=== PATIENT | male | born 1955 | race Caucasian/White ===

== ENCOUNTER → 2023-03-10 15:14 | Outpatient (BNVA) | payer MEDICARE, SELFPAY | PROVIDERS: PCP Internal Medicine; Visit Provider Physician Assistant | DX: M54.50 Low back pain, unspecified (principal) | CPT/HCPCS: 99212 ==

== ENCOUNTER 2023-03-31 15:45 | Outpatient (REF) | payer MEDICARE, SELFPAY ==
--- NOTE | ~2023-03-31 | MR_ITS ---
EXAMINATION: MR LUMBAR SPINE WITHOUT CONTRAST CLINICAL INFORMATION: Radiculopathy COMPARISON: None TECHNIQUE: MRI of the lumbar spine was obtained using routine sequences without contrast. FINDINGS: Motion degraded examination Normal anatomic alignment. Heterogeneous marrow signal without suspicious focal osseous lesion in the lumbar spine. There is some rectangular T1 hypointense signal within the right iliac bone which may be postsurgical or reflect benign sclerosis. There is some scattered focal fat or small hemangiomas throughout the vertebral bodies. L5 superior endplate Schmorl's node. Mixed type I and type II anomaly right-sided endplate marrow signal changes at L3-L4. The vertebral body heights are maintained. Multilevel disc desiccation and height loss. The conus medullaris terminates at the level of L1. The distal spinal cord is normal in appearance. The cauda equina nerve roots appear normal. No significant abnormalities of the paraspinal musculature. There is some subcutaneous scarring in the right posterior subcutaneous fat. Limited evaluation of the intra-abdominal structures without significant abnormalities. The abdominal aorta is of normal contour and caliber. SPINAL LEVELS: T12-L1: No significant spinal canal or neural foraminal narrowing L1-L2: No significant spinal canal or neuroforaminal narrowing. L2-L3: No significant spinal canal or neuroforaminal narrowing. Shallow left eccentric disc bulge. L3-L4: Disc osteophyte complex, mild to moderate facet arthropathy, ligamentum flavum thickening. No significant central spinal canal stenosis. Bilateral subarticular zone narrowing. Mild left and moderate right neural foraminal narrowing L4-L5: No significant spinal canal or neuroforaminal narrowing. Mild to moderate facet arthropathy. Shallow disc bulge. Bilateral subarticular zone narrowing. L5-S1: No significant spinal canal or neuroforaminal narrowing. MR/MR lumbar spine wo con IMPRESSION: Motion degraded examination. Multilevel lumbar spondylosis as described above without significant central spinal canal narrowing. There is bilateral subarticular zone narrowing at L3-L4 and L4-L5 and mild left and moderate right neural foraminal narrowing at L3-L4.
== END 2023-03-31 15:46 | disposition home or self-care (01) ==
LOC: HO.MRI 15:45
PROVIDERS: PCP Internal Medicine; Visit Provider Physician Assistant
DX: M54.16 Radiculopathy, lumbar region (principal)
CPT/HCPCS: 72148

== ENCOUNTER 2024-04-11 09:44 | Outpatient (AMB) | payer MEDICARE, SELFPAY ==
--- NOTE | 2024-04-11 09:45 | A.OFFPC_ITS ---
Vital Signs 04/11/24 09:46 Height 6 ft 4 in Weight 274 lb BMI 33.3 BP 132/70 Blood Pressure Location Lt brachial Position Sitting Respiration 13 Pulse 75 Pulse Source Pulse Oximeter Pulse Oximetry (%) 98 Oxygen Delivery Method Room Air Intake Visit Reasons: [employer]-Medications Intake Note: Patient is a new patient establishing care with [facility]. Patient would like to discuss medications today. Mental Measurements Teacher Required: No Allergies No Known Allergies Allergy (Verified 04/11/24 09:51) Tobacco use date assessed: 04/11/24 Fall risk assessment: No Falls in past year Last assessed Fall Risk: 04/11/24 Dental Screening Dental Screen Date: 04/11/24 Did you have a dental visit in the last 12 months?: Yes Did you have a dental problem in the last 6 months where you did not have access to dental care?: No Was dental information given to patient?: Patient has dentist HPI HPI Comments History of Present Illness Details 69 year old male with a past medical his tory of hypertension, hyperlipidemia, GERD, spinal stenosis/ddd presenting for follow up CV: On amlodipine, atorvastatin. Denies chest pain, dizziness, vision changes GERD: stable on omeprazole Colonoscopy due 2024 [facility] Social History Household Members: Spouse Housing: House Are you a primary healthcare architect to a significant other at home: No Do you presently have visiting nurse or other home services: No 75 years or older and lives alone: No Alcohol intake: current Alcohol intake frequency: a few times a week Patient Tobacco Use Status: Never used Tobacco e-Cigarette/Vaping Use: Never Used service: No Current occupational status: retired Current occupational exposures/hazards: No Cognitive needs: No Hearing needs: Yes (wears hearing aids) Vision needs: Yes (Had eye surgery) Questionnaire PHQ-9 Over the last 2 weeks, how often have you been bothered by any of the following problems? 1. Little interest or pleasure in doing things: not at all 2. Feeling down, depressed, or hopeless: not at all 3. Trouble falling or staying asleep, or sleeping too much: not at all 4. Feeling tired or having little energy: not at all 5. Poor appetite or overeating: not at all 6. Feeling bad about yourself - or that you are a failure or have let yourself or your family down: not at all 7. Trouble concentrating on things, such as reading the newspaper or watching television: not at all 8. Moving or speaking so slowly that other people could have noticed. Or the opposite - being so fidgety or restless that you have been moving around a lot more than usual: not at all 9. Thoughts that you would be better off or of hurting yourself in some way: not at all Total score: 0 Depression Screening Interpretation: Negative (neg) Depression Screening Done: Yes 16050 - PHQ-9 Billing: Yes Source: Developed by Drs. Gonsalo Han, Justine Nguyen, Rohan Fall and colleagues, with an educational marcy from [employer]. Thrive Questionnaire Date Thrive assessed: 04/11/24 I am a: Patient What is your living situation today?: I have a steady place to live Within the past 12 months, did the food you bought not last and you didn't have the money to get more?: Never true Within the past 12 months, did you worry whether your food would run out before you got money to buy more?: Never true Do you have trouble paying for medicines?: No Do you have trouble getting transportation to medical appointments?: No Do you have trouble paying your heating and electricity bill?: No Do you have trouble taking care of your child, family member or friend?: No Do you have trouble with day-to-day activities such as bathing, preparing meals, shopping, managing finances, etc.?: No Are you currently unemployed and looking for a job?: No Are you interested in more education?: No Please select the resources that you would like help with: None Currently or been in a relationship where the following occur: No concerns reported THRIVE Score: 0 AUDIT C Alcohol Use Questionnaire (AUDIT-C) 1. How often do you have a drink containing alcohol?: 2-3 times a week 2. How many drinks containing alcohol do you have on a typical day when you are drinking?: 1 or 2 3. How often do you have six or more drinks on one occasion?: Never Total Score: 3 NOE-7 AMB Questionnaire NOE-7 Date NOE - 7 assessed: 04/11/24 Feeling nervous, anxious, or on edge: 0 = Not at all Not being able to stop or control worryin = Not at all Worrying too much about different things: 0 = Not at all Trouble relaxin = Not at all Being so restless that it is hard to sit still: 0 = Not at all Becoming easily annoyed or irritable: 0 = Not at all Feeling afraid as if something awful might happen: 0 = Not at all Total NOE-7 score (0-4 normal; 5-9 mild; 10-14 moderate; 15-21 severe): 0 Source: Developed by Drs. Gonsalo Han, Justine Nguyen, Rohan Fall and colleagues, with an educational marcy from [employer]. NOE-7 Assessment Billing NOE-7 Assessment Tool: NOE-7 Assessment 80363 Physical exam (Primary Care) Vital Signs: Last Vital Signs Pulse 75 04/11/24 09:46 Resp 13 04/11/24 09:46 BP 132/70 04/11/24 09:46 Pulse Ox 98 04/11/24 09:46 Oxygen Delivery Method Room Air 04/11/24 09:46 BMI result Body Mass Index 33.3 Tobacco/Smoking Status: Tobacco use Status Tobacco use date assessed 04/11/24 04/11/24 09:59 Patient Tobacco Use Status Never used Tobacco 04/11/24 09:59 e-Cigarette/Vaping Use Never Used 04/11/24 09:59 PHQ-9: PHQ-9 Score PHQ-9: Total score 0 04/11/24 10:02 Depression Screening Interpretation: Negative (neg) Thrive Assessment: Date of Thrive Assessment Date Thrive assessed 04/11/24 04/11/24 10:02 Currently or been in a relationship where the following occur: No concerns reported Assessment and Plan Assessment & Plan (1) Hypertension: Code(s): I10 - Essential (primary) hypertension Qualifiers: Hypertension type: primary hypertension Qualified Code(s): I10 - Essential (primary) hypertension Plan: controlled. continue current medication (2) Hyperlipidemia: Code(s): E78.5 - Hyperlipidemia, unspecified Qualifiers: Hyperlipidemia type: mixed hyperlipidemia Qualified Code(s): E78.2 - Mixed hyperlipidemia Plan: continue statin therapy (3) Back pain of lumbar region with sciatica: Code(s): M54.40 - Lumbago with sciatica, unspecified side Plan: continue follow up physiatry, spine ctr prn Orders: Orders Complete Blood Count Auto Diff 6 Months Z12.5 - Encounter for screening for malignant neoplasm of prostate, Z13.0 - Encounter for screening for diseases of the blood and blood-forming organs and certain disorders involving the immune mechanism, Z13.220 - Encounter for screening for lipoid disorders, Z13.228 - En counter for screening for other metabolic disorders Comprehensive Met. Panel 6 Months Z12.5 - Encounter for screening for malignant neoplasm of prostate, Z13.0 - Encounter for screening for diseases of the blood and blood-forming organs and certain disorders involving the immune mechanism, Z13.220 - Encounter for screening for lipoid disorders, Z13.228 - Encounter for screening for other metabolic disorders Lipid Panel 6 Months Z12.5 - Encounter for screening for malignant neoplasm of prostate, Z13.0 - Encounter for screening for diseases of the blood and blood- forming organs and certain disorders involving the immune mechanism, Z13.220 - Encounter for screening for lipoid disorders, Z13.228 - Encounter for screening for other metabolic disorders Prostate Specific Antigen 6 Months Z12.5 - Encounter for screening for malignant neoplasm of prostate, Z13.0 - Encounter for screening for diseases of the blood and blood-forming organs and certain disorders involving the immune mechanism, Z13.220 - Encounter for screening for lipoid disorders, Z13.228 - Encounter for screening for other metabolic disorders Medications: New amlodipine 10 mg PO DAILY 90 days 90 tabs 3RF atorvastatin 10 mg PO DAILY 90 days 90 tabs 3RF tramadol 1-2 tab orally 2 times a day PRN; 7 days 28 tabs 0RF pain baclofen 10 mg PO BID 30 days PRN 60 tabs 3RF muscle spasm Coding Level of Care Code Tele Est Pt Level 4 (41761) Diagnoses Primary hypertension I10 Hypertension type: primary hypertension Mixed hyperlipidemia E78.2 Hyperlipidemia type: mixed hyperlipidemia Back pain of lumbar region with sciatica M54.40 Additional Codes NOE-7 Assessment Billing - NOE-7 Assessment Tool: NOE-7 Assessment [id number] ([id number])
[2024-04-11 09:46] VITALS: BP 132/70; PULSE 75; RESP 13; O2SAT 98; BMI 33.3
== END 2024-04-11 10:48 | disposition home or self-care (01) ==
PROVIDERS: PCP Internal Medicine; Visit Provider Internal Medicine
DX: I10 Essential (primary) hypertension (principal); E78.2 Mixed hyperlipidemia; M54.40 Lumbago with sciatica, unspecified side
CPT/HCPCS: 99214

== ENCOUNTER 2024-09-16 07:39 | Outpatient (REF) | payer MEDICARE, SELFPAY ==
[2024-09-16 11:12] LABS: MANUAL DIFF FLAG NO
[2024-09-16 11:19] LABS: Basophils Percent Auto 0.4 % (0-2); Eosinophils Absolute Auto 0.2 X10*3/uL (0.0-0.4); Eosinophils Percent Auto 1.5 % (0-4); Hematocrit 44.6 % (42.0-52.0); Hemoglobin 14.7 g/dl (14.0-18.0); Imm Gran Abs Auto 0.07 X10*3/uL (0.00-0.03); Imm Gran Pct Auto 0.7 % (0.0-0.4); Lymphocytes Absolute Auto 1.9 X10*3/uL (1.2-4.9); Lymphocytes Percent Auto 18.3 % (20-40); Mean Corpuscular Hemoglobin 28.3 pg (27.0-33.0); Mean Corpuscular Volume 85.9 fL (80.0-98.0); Mean Platelet Volume 9.8 fL (9.4-12.4); Monocytes Absolute Auto 0.7 X10*3/uL (0.1-1.2); Monocytes Percent Auto 7.2 % (2-11); Neutrophils Absolute Auto 7.3 x10*3/uL (2.0-8.3); Neutrophils Percent Auto 71.9 % (45-73); Platelet Count 298 X10*3/uL (160-400); Red Blood Count 5.19 X10*6/uL (4.60-5.80); Red Cell Distribution Width 13.8 % (11.0-16.0); White Blood Count 10.2 X10*3/uL (4.8-10.8)
[2024-09-16 11:49] LABS: Prostate Specific Antigen 1.25 ng/mL (<0.05-4.0)
[2024-09-16 12:03] LABS: Alanine Aminotransferase 48 U/L (0-40); Albumin Level 4.1 g/dL (3.5-5.0); Alkaline Phosphatase 90 U/L (39-117); Anion Gap 9 (12-20); Aspartate Amino Transferase 32 U/L (5-37); Bilirubin Total 0.7 mg/dL (0.0-1.0); Blood Urea Nitrogen 16 mg/dL (9-16); Carbon Dioxide 27 mmol/L (22-29); Chloride 109 mmol/L (96-108); Cholesterol 136 mg/dL (<200); Estimated Glomerular Filt Rate > 60; Glucose Random 77 mg/dL (60-115); HDL Cholesterol 40 mg/dL (>40); LDL Cholesterol Calculated 69 mg/dL (<100); Potassium 4.2 mmol/L (3.3-5.1); Sodium 141 mmol/L (135-145); Total Protein 6.9 g/dL (6.5-8.0); Triglycerides 137 mg/dL (<150)
== END 2024-09-16 07:40 | disposition home or self-care (01) ==
LOC: HO.WFDLDS 07:39
PROVIDERS: Visit Provider Internal Medicine
DX: Z13.0 Encounter for screening for diseases of the blood and blood-forming organs and certain disorders involving the immune mechanism (principal); Z13.220 Encounter for screening for lipoid disorders; Z13.228 Encounter for screening for other metabolic disorders; Z12.5 Encounter for screening for malignant neoplasm of prostate
CPT/HCPCS: 36415; 80053; 80061; 84153; 85025

== ENCOUNTER 2024-09-23 08:08 | Outpatient (AMB) | payer MEDICARE, SELFPAY ==
--- NOTE | 2024-09-23 08:32 | A.OFFPC_ITS ---
Vital Signs 09/23/24 08:33 Height 6 ft 4 in Weight 260 lb 2 oz BMI 31.7 BP 110/86 Blood Pressure Location Lt brachial Position Sitting Pulse 71 Pulse Source Pulse Oximeter Pulse Oximetry (%) 96 Oxygen Delivery Method Room Air Intake Visit Reasons: annual wellness Intake Note: Medical wellness visit Pay Station Collector Required: No Allergies No Known Allergies Allergy (Verified 09/23/24 08:38) Tobacco use date assessed: 09/23/24 Fall risk assessment: No Falls in past year Last assessed Fall Risk: 09/23/24 Dental Screening Dental Screen Date: 04/11/24 HPI HPI Comments History of Present Illness Details 69 year old male with a past medical his tory of hypertension, hyperlipidemia, GERD, spinal stenosis/ddd presenting for AWV CV: On amlodipine, atorvastatin. Denies chest pain, dizziness, vision changes GERD: stable on omeprazole MSK: Spinal stenosis/DDD. Follows with Dr Gallegos. Follows with Dr Nacho gonzalez in [place] Colonoscopy due 2024-[facility] Got flu, covid, RSV shots Care team reviewed, see above HRA reviewed Independent ADLS 3/3 memory ROS CONSTITUTIONAL: Denies weight loss, fever and chills. HEENT: Denies changes in vision and hearing. RESPIRATORY: Denies SOB and cough. CV: Denies palpitations and CP GI: Denies abdominal pain, nausea, vomiting and diarrhea. : Denies dysuria and urinary frequency. MSK: Denies new myalgia and joint pain. SKIN: Denies rash and pruritus. NEUROLOGICAL: Denies headache PSYCHIATRIC: Denies recent changes in mood. PHYSICAL EXAM: GENERAL: Alert and oriented x 3. NAD EYES: EOMI. Anicteric. HENT: Moist mucous membranes. No scleral icterus. No cervical lymphadenopathy. LUNGS: Clear to auscultation bilaterally. CARDIOVASCULAR: Regular rate and rhythm. No murmur. No JVD. ABDOMEN: Soft, non-tender +bs EXTREMITIES: No edema. Non-tender. SKIN: No rashes or lesions. Warm. NEUROLOGIC: No focal neurological deficits. CN II-XII grossly intact PSYCHIATRIC: Cooperative. Appropriate mood and affect [facility] Social History Household Members: Spouse Housing: House Are you a primary adult day care worker to a significant other at home: No Do you presently have visiting nurse or other home services: No 75 years or older and lives alone: No Alcohol intake: current Alcohol intake frequency: a few times a week Patient Tobacco Use Status: Never used Tobacco e-Cigarette/Vaping Use: Never Used service: No Current occupational status: retired Current occupational exposures/hazards: No Cognitive needs: No Hearing needs: Yes (wears hearing aids) Vision needs: Yes (Had eye surgery) Questionnaire Thrive Questionnaire Date Thrive assessed: 04/11/24 AUDIT C Alcohol Use Questionnaire (AUDIT-C) 2. How many drinks containing alcohol do you have on a typical day when you are drinking?: 1 or 2 3. How often do you have six or more drinks on one occasion?: Less than monthly Total Score: 1 NOE-7 AMB Questionnaire NOE-7 Date NOE - 7 assessed: 04/11/24 Source: Developed by Drs. Gonsalo Han, Justine Nguyen, Rohan Fall and colleagues, with an educational marcy from [employer]. Physical exam (Primary Care) Vital Signs: Last Vital Signs Pulse 71 09/23/24 08:33 BP 110/86 09/23/24 08:33 Pulse Ox 96 09/23/24 08:33 Oxygen Delivery Method Room Air 09/23/24 08:33 BMI result Body Mass Index 31.7 Tobacco/Smoking Status: Tobacco use Status Tobacco use date assessed 09/23/24 09/23/24 08:40 Patient Tobacco Use Status Never used Tobacco 09/23/24 08:40 e-Cigarette/Vaping Use Never Used 09/23/24 08:40 Thrive Assessment: Date of Thrive Assessment Date Thrive assessed 04/11/24 09/23/24 08:33 Coding Level of Care Code Est Pt Level 4 (54202) Diagnoses Encounter for initial annual wellness visit (AWV) in Medicare patient Z00.00 Primary hypertension I10 Hypertension type: primary hypertension Mixed hyperlipidemia E78.2 Hyperlipidemia type: mixed hyperlipidemia Assessment & Plan Assessment & Plan (1) Encounter for initial annual wellness visit (AWV) in Medicare patient: Code(s): Z00.00 - Encounter for general adult medical examination without abnormal findings Category: Medical Plan: No issues identified AWV/HRA scanned (2) Hypertension: Code(s): I10 - Essential (primary) hypertension Category: Medical Qualifiers: Hypertension type: primary hypertension Qualified Code(s): I10 - Essential (primary) hypertension Plan: well controlled on current medications (3) Hyperlipidemia: Code(s): E78.5 - Hyperlipidemia, unspecified Category: Medical Qualifiers: Hyperlipidemia type: mixed hyperlipidemia Qualified Code(s): E78.2 - Mixed hyperlipidemia Plan: stable Orders: Orders Comprehensive Met. Panel 6 Months I10 - Essential (primary) hypertension
[2024-09-23 08:33] VITALS: BP 110/86; PULSE 71; O2SAT 96; BMI 31.7
== END 2024-09-23 09:09 | disposition home or self-care (01) ==
PROVIDERS: PCP Internal Medicine; Visit Provider Internal Medicine
DX: Z00.00 Encounter for general adult medical examination without abnormal findings (principal); I10 Essential (primary) hypertension; E78.2 Mixed hyperlipidemia

== ENCOUNTER → 2024-09-23 08:08 | Outpatient (BNVA) | payer MEDICARE, SELFPAY | PROVIDERS: PCP Internal Medicine; Visit Provider Internal Medicine | DX: Z00.00 Encounter for general adult medical examination without abnormal findings (principal); I10 Essential (primary) hypertension; E78.2 Mixed hyperlipidemia; K21.9 Gastro-esophageal reflux disease without esophagitis; M48.00 Spinal stenosis, site unspecified; Z79.899 Other long term (current) drug therapy | CPT/HCPCS: 99212 ==

== ENCOUNTER 2025-03-27 08:39 | Outpatient (AMB) | payer MEDICARE, SELFPAY ==
--- NOTE | 2025-03-27 08:51 | MHC.PC.OV ---
Vital Signs 03/27/25 08:54 Height 6 ft 4 in Weight 263 lb BMI 32.0 BP 102/74 Blood Pressure Location Lt brachial Position Sitting Respiration 14 Pulse 83 Pulse Source Pulse Oximeter Pulse Oximetry (%) 96 Oxygen Delivery Method Room Air Intake Visit Reasons: bp follow up Intake Note: Blood pressure follow up Allergies No Known Allergies Allergy (Verified 03/27/25 08:53) Fall risk assessment: No Falls in past year Last assessed Fall Risk: 03/27/25 Dental Screening Dental Screen Date: 03/27/25 Did you have a dental visit in the last 12 months?: Yes Did you have a dental problem in the last 6 months where you did not have access to dental care?: No Was dental information given to patient?: Patient has dentist HPI HPI Comments History of Present Illness Details 70 year old male with a past medical history of hypertension, hyperlipidemia, GERD, spinal stenosis/ddd presenting for follow up CV: On amlodipine, atorvastatin. Blood pressure is well controlled Denies chest pain, dizziness, vision changes GERD: stable on omeprazole MSK: Spinal stenosis/DDD. Saw Dr Gallegos. Has had injections with physiatry. One recent-did not seem to be as effective as previous Continues to have post nasal drip, mucus. No shortness of breath, wheezing. Bad childhood asthma, allergies. Follows with Dr Nacho gonzalez in [place] Colonoscopy due [id number] today Got flu, covid, RSV shots ROS CONSTITUTIONAL: Denies weight loss, fever and chills. HEENT: Denies changes in vision and hearing. RESPIRATORY: Denies SOB and cough. CV: Denies palpitations and CP GI: Denies abdominal pain, nausea, vomiting and diarrhea. : Denies dysuria and urinary frequency. MSK: Denies new myalgia and joint pain. SKIN: Denies rash and pruritus. Varicose veins NEUROLOGICAL: Denies headache PSYCHIATRIC: Denies recent changes in mood. PHYSICAL EXAM: GENERAL: Alert and oriented x 3. NAD EYES: EOMI. Anicteric. HENT: Moist mucous membranes. No scleral icterus. No cervical lymphadenopathy. LUNGS: Clear to auscultation bilaterally. CARDIOVASCULAR: Regular rate and rhythm. No murmur. No JVD. ABDOMEN: Soft, non-tender +bs EXTREMITIES: No edema. Non-tender. Varicose veins. spider veins. 2+PT pulses b/l SKIN: No rashes or lesions. Warm. NEUROLOGIC: No focal neurological deficits. CN II-XII grossly intact PSYCHIATRIC: Cooperative. Appropriate mood and affect [facility] Social History Household Members: Spouse Housing: House Are you a primary home care rn to a significant other at home: No Do you presently have visiting nurse or other home services: No 75 years or older and lives alone: No Alcohol intake: current Alcohol intake frequency: a few times a week Patient Tobacco Use Status: Never used Tobacco e-Cigarette/Vaping Use: Never Used service: No Current occupational status: retired Current occupational exposures/hazards: No Cognitive needs: No Hearing needs: Yes (wears hearing aids) Vision needs: Yes (Had eye surgery) Questionnaire PHQ-9 Over the last 2 weeks, how often have you been bothered by any of the following problems? 1. Little interest or pleasure in doing things: not at all 2. Feeling down, depressed, or hopeless: not at all 3. Trouble falling or staying asleep, or sleeping too much: not at all 4. Feeling tired or having little energy: not at all 5. Poor appetite or overeating: not at all 6. Feeling bad about yourself - or that you are a failure or have let yourself or your family down: not at all 7. Trouble concentrating on things, such as reading the newspaper or watching television: not at all 8. Moving or speaking so slowly that other people could have noticed. Or the opposite - being so fidgety or restless that you have been moving around a lot more than usual: not at all 9. Thoughts that you would be better off or of hurting yourself in some way: not at all Total score: 0 Depression Screening Interpretation: Negative Depression Screening Done: Yes 75119 - PHQ-9 Billing: Yes Source: Developed by Drs. Gonsalo Han, Justine Nguyen, Rohan Fall and colleagues, with an educational marcy from [employer]. Thrive Questionnaire Date Thrive assessed: 03/20/25 I am a: Patient What is your living situation today?: I have a steady place to live Within the past 12 months, did the food you bought not last and you didn't have the money to get more?: Never true Within the past 12 months, did you worry whether your food would run out before you got money to buy more?: Never true Do you have trouble paying for medicines?: No Do you have trouble getting transportation to medical appointments?: No Do you have trouble paying your heating and electricity bill?: No Do you have trouble taking care of your child, family member or friend?: No Do you have trouble with day-to-day activities such as bathing, preparing meals, shopping, managing finances, etc.?: No Are you currently unemployed and looking for a job?: No Are you interested in more education?: No Please select the resources that you would like help with: None Currently or been in a relationship where the following occur: No concerns reported THRIVE Score: 0 AUDIT C Alcohol Use Questionnaire (AUDIT-C) 1. How often do you have a drink containing alcohol?: 2-4 times a month 2. How many drinks containing alcohol do you have on a typical day when you are drinking?: 1 or 2 3. How often do you have six or more drinks on one occasion?: Less than monthly Total Score: 3 NOE-7 AMB Questionnaire NOE-7 Date NOE - 7 assessed: 03/27/25 Feeling nervous, anxious, or on edge: 0 = Not at all Not being able to stop or control worryin = Not at all Worrying too much about different things: 0 = Not at all Trouble relaxin = Not at all Being so restless that it is hard to sit still: 0 = Not at all Becoming easily annoyed or irritable: 0 = Not at all Feeling afraid as if something awful might happen: 0 = Not at all Total NOE-7 score (0-4 normal; 5-9 mild; 10-14 moderate; 15-21 severe): 0 Source: Developed by Drs. Gonsalo Han, Justine Nguyen, Rohan Fall and colleagues, with an educational marcy from [employer]. NOE-7 Assessment Billing NOE-7 Assessment Tool: NOE-7 Assessment 31913 Physical exam (Primary Care) Vital Signs: Last Vital Signs Pulse 83 03/27/25 08:54 Resp 14 03/27/25 08:54 BP 102/74 03/27/25 08:54 Pulse Ox 96 03/27/25 08:54 Oxygen Delivery Method Room Air 03/27/25 08:54 BMI result Body Mass Index 32.0 Tobacco/Smoking Status: Tobacco use Status Tobacco use date assessed 03/27/25 08:57 Patient Tobacco Use Status Never used Tobacco 03/27/25 08:57 e-Cigarette/Vaping Use Never Used 03/27/25 08:57 PHQ-9: PHQ-9 Score PHQ-9: Total score 0 03/27/25 08:57 Depression Screening Interpretation: Negative Thrive Assessment: Date of Thrive Assessment Date Thrive assessed 03/20/25 03/27/25 08:53 Currently or been in a relationship where the following occur: No concerns reported Coding Level of Care Code Est Pt Level 4 (54386) Complex EM visit Add On G2211 Diagnoses Primary hypertension I10 Hypertension type: primary hypertension Mixed hyperlipidemia E78.2 Hyperlipidemia type: mixed hyperlipidemia Back pain of lumbar region with sciatica M54.40 Additional Codes NOE-7 Assessment Billing - NOE-7 Assessment Tool: NOE-7 Assessment 93964 ([id number]) PHQ-9 - 97134 - PHQ-9 Billing: Yes ([id number]) Assessment & Plan Assessment & Plan (1) Hypertension: Code(s): I10 - Essential (primary) hypertension Category: Medical Qualifiers: Hypertension type: primary hypertension Qualified Code(s): I10 - Essential (primary) hypertension (2) Hyperlipidemia: Code(s): E78.5 - Hyperlipidemia, unspecified Category: Medical Qualifiers: Hyperlipidemia type: mixed hyperlipidemia Qualified Code(s): E78.2 - Mixed hyperlipidemia (3) Back pain of lumbar region with sciatica: Code(s): M54.40 - Lumbago with sciatica, unspecified side Category: Medical Plan CV: Blood pressure well controlled on medications. continues statin GERD is satble on omeprazole. Back pain is fairly stable Varicosities-declines referral Orders: Orders Complete Blood Count Auto Diff 6 Months E78.2 - Mixed hyperlipidemia, I10 - Essential (primary) hypertension, Z13.0 - Encounter for screening for diseases of the blood and blood-forming organs and certain disorders involving the immune mechanism, Z13.228 - Encounter for screening for other metabolic disorders Comprehensive Met. Panel 6 Months E78.2 - Mixed hyperlipidemia, I10 - Essential (primary) hypertension, Z13.0 - Encounter for screening for diseases of the blood and blood-forming organs and certain disorders involving the immune mechanism, Z13.228 - Encounter for screening for other metabolic disorders Lipid Panel 6 Months E78.2 - Mixed hyperlipidemia, I10 - Essential (primary) hypertension, Z13.0 - Encounter for screening for diseases of the blood and blood-forming organs and certain disorders involving the immune mechanism, Z13.228 - Encounter for screening for other metabolic disorders Hemoglobin A1c 6 Months E78.2 - Mixed hyperlipidemia, I10 - Essential (primary) hypertension, Z13.0 - Encounter for screening for diseases of the blood and blood-forming organs and certain disorders involving the immune mechanism, Z13.228 - Encounter for screening for other metabolic disorders Prostate Specific Antigen 6 Months E78.2 - Mixed hyperlipidemia, I10 - Essential (primary) hypertension, Z13.0 - Encounter for screening for diseases of the blood and blood-forming organs and certain disorders involving the immune mechanism, Z13.228 - Encounter for screening for other metabolic disorders Testosterone, Free/Total Today R53.83 - Other fatigue PFT pulmonary function test Today R09.82 - Postnasal drip, Z87.09 - Personal history of other diseases of the respiratory system Referrals Gastroenterology Referral Z12.11 - Encounter for screening for malignant neoplasm of colon Medications: New omeprazole 20 mg PO DAILY 90 caps 3RF cetirizine 10 mg PO DAILY 90 tabs 3RF Refilled amlodipine 10 mg PO DAILY 90 tabs 3RF 90 days atorvastatin 10 mg PO DAILY 90 tabs 3RF 90 days tramadol 50 mg PO BID PRN 56 tabs 0RF pain 28 days baclofen 10 mg PO BID PRN 180 tabs 3RF for muscle spasm
[2025-03-27 08:54] VITALS: BP 102/74; PULSE 83; RESP 14; O2SAT 96; BMI 32.0
--- OUTSIDE RECORDS SUMMARY | 2025-03-27 08:58 | XMS_ITS | Clinical Summary ---
Author Organization [facility] Address [address] [place] [address] Care Team Providers Care Cleaning Staff Supervisor Name Role Phone Millicent Melara MD Primary Care Provider [phone] Social History Tobacco Use Types Packs/Day Years Used Date Smoking Tobacco: Never Assessed Sex and Gender Information Value Date Recorded Sex Assigned at Not on file Gender Identity Not on file Sexual Orientation Not on file Job Start Date Occupation Industry Not on file Not on file Not on file Plan of Treatment Health Maintenance Due Date Last Done Comments Hepatitis C Screening 1955 COVID-19 Vaccine (#1) 1955 Depression Screening 1967 Preventative Health Evaluation 1973 Colon Cancer Screening (Colonoscopy) 2000 Shingrix-Zoster Vaccine (1 of 2) 2005 DTap / Tdap / Td (2 - Td or Tdap) 11/08/2018 11/08/2008 Fall Risk Assessment 2020 Pneumococcal Vaccine (1 of 1 - PCV) 2020 Influenza Vaccine (Season Ended) 2025 07/22/2018, 06/18/2017, 08/17/2015, Additional history exists RSV Adult > 60+ Yrs or (1 - 1-dose 75+ series) 2030 Hepatitis B Vaccines Aged Out No long er eligible based on patient's age to complete this topic RSV Ped < 20 months Aged Out No longe r eligible based on patient's age to complete this topic Care Teams Cleaning Staff Supervisor Relationship Specialty Start Date End Date Millicent Melara MD [address] [place] [address] PCP - General Family Medicine 10/19/20
== END 2025-03-27 09:24 | disposition home or self-care (01) ==
LOC: HO.HMCFM 08:40
PROVIDERS: PCP Internal Medicine; Visit Provider Internal Medicine
DX: I10 Essential (primary) hypertension (principal); E78.2 Mixed hyperlipidemia; M54.40 Lumbago with sciatica, unspecified side

== ENCOUNTER → 2025-03-27 08:39 | Outpatient (BNVA) | payer MEDICARE, SELFPAY | PROVIDERS: PCP Internal Medicine; Visit Provider Internal Medicine | DX: I10 Essential (primary) hypertension (principal); E78.5 Hyperlipidemia, unspecified; M54.40 Lumbago with sciatica, unspecified side; K21.9 Gastro-esophageal reflux disease without esophagitis; M48.00 Spinal stenosis, site unspecified; Z79.899 Other long term (current) drug therapy; Z13.31 Encounter for screening for depression; Z13.30 Encounter for screening examination for mental health and behavioral disorders, unspecified | CPT/HCPCS: 96127; 99212 ==

== ENCOUNTER 2025-03-28 07:52 | Outpatient (REF) | payer MEDICARE, SELFPAY ==
--- OUTSIDE RECORDS SUMMARY | 2025-03-28 07:55 | XMS_ITS | Clinical Summary ---
Author Organization [facility] Address [address] [place] [address] Care Team Providers Care Electrical System Specialist Name Role Phone Millicent Melara MD Primary Care Provider [phone] Social History Tobacco Use Types Packs/Day Years [...] age to complete this topic Care Teams Electrical System Specialist Relationship Specialty Start Date End Date Millicent Melara MD [address] [place] [address] PCP - General Family Medicine 10/19/20
[2025-03-28 11:55] LABS: Alanine Aminotransferase 20 U/L (0-40); Albumin Level 4.2 g/dL (3.5-5.0); Alkaline Phosphatase 71 U/L (39-117); Anion Gap 11 (12-20); Aspartate Amino Transferase 24 U/L (5-37); Bilirubin Total 0.5 mg/dL (0.0-1.0); Blood Urea Nitrogen 21 mg/dL (9-16); Calcium 8.6 mg/dL (8.4-10.2); Carbon Dioxide 25 mmol/L (22-29); Chloride 111 mmol/L (96-108); Estimated Glomerular Filt Rate > 60; Glucose Random 98 mg/dL (60-115); Potassium 4.2 mmol/L (3.3-5.1); Sodium 143 mmol/L (135-145); Total Protein 6.4 g/dL (6.5-8.0)
[2025-04-02 15:13] LABS: Testosterone, Free 49.8 pg/mL (30.0-135.0); Testosterone, Total 348 ng/dL (250-1100)
== END 2025-03-28 07:53 | disposition home or self-care (01) ==
LOC: HO.WFDLDS 07:52
PROVIDERS: Visit Provider Internal Medicine
DX: I10 Essential (primary) hypertension (principal); R53.83 Other fatigue
CPT/HCPCS: 36415; 80053; 84402; 84403

== ENCOUNTER 2025-04-05 07:26 | Outpatient (REF) | payer MEDICARE, SELFPAY ==
--- NOTE | ~2025-04-05 | MR_ITS ---
EXAMINATION: MR LUMBAR SPINE WITHOUT CONTRAST CLINICAL INFORMATION: Radiculopathy. COMPARISON: March 31, 2023. TECHNIQUE: MRI of the lumbar spine was obtained using routine sequences without contrast. FINDINGS: Last rib-bearing vertebra labeled T12. Small area of bone marrow STIR signal in the anterior marginal osteophyte formation at L2-3. Bone marrow inhomogeneity. Modic type II endplate changes at L3 and L5. Disc desiccation with decreased intervertebral disc height at L3-4. There is a grade 1 retrolisthesis L3-4. The conus medullaris ends at superior endplate of L1 with normal signal. T11-12: No disc herniation. No neuroforamina stenosis. T12-L1: Broad-based disc bulging. No central spinal canal or neuroforamina stenosis. L1-2: Broad-based disc bulging. Facet joint hypertrophy. No compression upon neural elements. L2-3: There is a central and left subarticular broad-based disc herniation abutting the left L3 nerve root on its lateral recess. Left neuroforamina narrowing. Facet joint hypertrophy as well as ligamentum flavum. There is reduced AP diameter of the central spinal canal. L3-4: Broad-based disc bulging. Facet joint and ligamentum flavum hypertrophy. Reduced AP diameter of the thecal sac and the neural foramina likely encroaching the neural elements. L4-5: Broad-based disc bulging. There is facet joint and ligamentum flavum hypertrophy. There is soft tissue fullness in the medial aspect of the right facet joint resulting in dorsal deformity of the thecal sac central spinal canal and bilateral neuroforamina stenosis encroaching the neural elements. L5-S1: Broad-based disc bulging. No central spinal canal stenosis. Bilateral facet joint hypertrophy. No compression upon elements. Fatty atrophy of the lower lumbar muscles from L4 to sacrum. Dextroconvex curvature of the lumbar spine which could be positional. No prevertebral compartment hematoma, mass or fluid collections. MR/MR lumbar spine wo con IMPRESSION: Multilevel spondylosis from L2-3 to L5-S1 resulting in central spinal canal and bilateral neuroforamina stenosis at L3-4 and L4-5 levels likely encroaching the neural elements. Electronically signed by: Rinku You MD 04/05/2025 11:15 AM EDT
== END 2025-04-05 07:27 | disposition home or self-care (01) ==
LOC: HO.MRI 07:26
PROVIDERS: PCP Internal Medicine; Visit Provider Physical Medicine & Rehabilitation
DX: M54.16 Radiculopathy, lumbar region (principal); M48.062 Spinal stenosis, lumbar region with neurogenic claudication
CPT/HCPCS: 72148

== ENCOUNTER → 2025-04-05 07:39 | Outpatient (BNV) | payer MEDICARE, SELFPAY | PROVIDERS: PCP Internal Medicine; Visit Provider Radiology Diagnostic Radiology | DX: M47.816 Spondylosis without myelopathy or radiculopathy, lumbar region (principal); M48.061 Spinal stenosis, lumbar region without neurogenic claudication | CPT/HCPCS: 72148 ==

== ENCOUNTER 2025-06-02 15:07 | Outpatient (AMB) | payer MEDICARE, SELFPAY ==
--- NOTE | 2025-06-02 15:09 | MHC.PC.OV ---
Vital Signs 06/02/25 15:13 Height 6 ft 4 in Weight 264 lb 6 oz BMI 32.2 BP 112/84 Blood Pressure Location Lt brachial Position Sitting Respiration 14 Pulse 80 Pulse Source Pulse Oximeter Temp 98.4 F Temp Source Oral Pulse Oximetry (%) 95 Oxygen Delivery Method Room Air Intake Visit Reasons: Discharged: May 14 for [facility] Intake Note: Hospital follow up Water/Wastewater Engineer Required: No Allergies No Known Allergies Allergy (Verified 06/02/25 15:12) Tobacco use date assessed: 06/02/25 Fall risk assessment: No Falls in past year Last assessed Fall Risk: 06/02/25 Dental Screening Dental Screen Date: 03/27/25 HPI HPI Comments History of Present Illness Details 70 year old male with a past medical history of hypertension, hyperlipidemia, GERD, spinal stenosis/ddd presenting for ER follow up Recent ER visit for left sided chest pain and left arm weakness. ACS rule out. CT, MRI head r/o stroke, neurology consulted. Imaging revealed left sided pneumonia. Patient received dose of IV antibiotics and was discharged on oral. Left arm weakness resolved in hospital. Left chest pain resolved within 2 days of antibiotics. No repeat episodes. CV: On amlodipine, atorvastatin. Blood pressure is well controlled Denies chest pain, dizziness, vision changes GERD: stable on omeprazole MSK: Spinal stenosis/DDD. Saw Dr Gallegos. Has had injections with physiatry. One recent-did not seem to be as effective as previous Continues to have post nasal drip, mucus. No shortness of breath, wheezing. Bad childhood asthma, allergies. Follows with Dr Nacho gonzalez in [place] Colonoscopy due [id number] today Got flu, covid, RSV shots ROS CONSTITUTIONAL: Denies weight loss, fever and chills. HEENT: Denies changes in vision and hearing. RESPIRATORY: Denies SOB and cough. CV: Denies palpitations and CP GI: Denies abdominal pain, nausea, vomiting and diarrhea. : Denies dysuria and urinary frequency. MSK: Denies new myalgia and joint pain. SKIN: Denies rash and pruritus. Varicose veins NEUROLOGICAL: Denies headache PSYCHIATRIC: Denies recent changes in mood. PHYSICAL EXAM: GENERAL: Alert and oriented x 3. NAD EYES: EOMI. Anicteric. HENT: Moist mucous membranes. No scleral icterus. No cervical lymphadenopathy. LUNGS: Clear to auscultation bilaterally. CARDIOVASCULAR: Regular rate and rhythm. No murmur. No JVD. ABDOMEN: Soft, non-tender +bs EXTREMITIES: No edema. Non-tender. Varicose veins. spider veins. 2+PT pulses b/l SKIN: No rashes or lesions. Warm. NEUROLOGIC: No focal neurological deficits. CN II-XII grossly intact PSYCHIATRIC: Cooperative. Appropriate mood and affect [facility] Social History Household Members: Spouse Housing: House Are you a primary ambulatory care nurse to a significant other at home: No Do you presently have visiting nurse or other home services: No 75 years or older and lives alone: No Alcohol intake: current Alcohol intake frequency: a few times a week Patient Tobacco Use Status: Never used Tobacco e-Cigarette/Vaping Use: Never Used service: No Current occupational status: retired Current occupational exposures/hazards: No Cognitive needs: No Hearing needs: Yes (wears hearing aids) Vision needs: Yes (Had eye surgery) Questionnaire Thrive Questionnaire Date Thrive assessed: 03/20/25 I am a: Patient What is your living situation today?: I have a steady place to live Within the past 12 months, did the food you bought not last and you didn't have the money to get more?: Never true Within the past 12 months, did you worry whether your food would run out before you got money to buy more?: Never true Do you have trouble paying for medicines?: No Do you have trouble getting transportation to medical appointments?: No Do you have trouble paying your heating and electricity bill?: No Do you have trouble taking care of your child, family member or friend?: No Do you have trouble with day-to-day activities such as bathing, preparing meals, shopping, managing finances, etc.?: No Are you currently unemployed and looking for a job?: No Are you interested in more education?: No Please select the resources that you would like help with: None Currently or been in a relationship where the following occur: No concerns reported THRIVE Score: 0 NOE-7 AMB Questionnaire NOE-7 Date NOE - 7 assessed: 03/27/25 Source: Developed by Drs. Gonsalo Han, Justine Nguyen, Rohan Fall and colleagues, with an educational marcy from [employer]. Physical exam (Primary Care) Vital Signs: Last Vital Signs Temp 98.4 F 06/02/25 15:13 Pulse 80 06/02/25 15:13 Resp 14 06/02/25 15:13 BP 112/84 06/02/25 15:13 Pulse Ox 95 06/02/25 15:13 Oxygen Delivery Method Room Air 06/02/25 15:13 BMI result Body Mass Index 32.2 Tobacco/Smoking Status: Tobacco use Status Tobacco use date assessed 06/02/25 06/02/25 15:16 Patient Tobacco Use Status Never used Tobacco 06/02/25 15:12 e-Cigarette/Vaping Use Never Used 06/02/25 15:12 Thrive Assessment: Date of Thrive Assessment Date Thrive assessed 03/20/25 06/02/25 15:12 Currently or been in a relationship where the following occur: No concerns reported Coding Level of Care Code Est Pt Level 4 (01535) Complex EM visit Add On G2211 Diagnoses Pneumonia of left lung due to infectious organism, unspecified part of lung J18.9 Pneumonia type: due to unspecified organism Laterality: left Lung location: unspecified part of lung Primary hypertension I10 Hypertension type: primary hypertension Mixed hyperlipidemia E78.2 Hyperlipidemia type: mixed hyperlipidemia Assessment & Plan Assessment & Plan (1) Pneumonia: Code(s): J18.9 - Pneumonia, unspecified organism Category: Medical Qualifiers: Pneumonia type: due to unspecified organism Laterality: left Lung location: unspecified part of lung Qualified Code(s): J18.9 - Pneumonia, unspecified organism (2) Hypertension: Code(s): I10 - Essential (primary) hypertension Category: Medical Qualifiers: Hypertension type: primary hypertension Qualified Code(s): I10 - Essential (primary) hypertension (3) Hyperlipidemia: Code(s): E78.5 - Hyperlipidemia, unspecified Category: Medical Qualifiers: Hyperlipidemia type: mixed hyperlipidemia Qualified Code(s): E78.2 - Mixed hyperlipidemia Plan ER course reviewed Question of whether pneumonia may have been precipitated by achalasia/aspiration. Patient has follow up with Dr Griffith Repeat CXR 6 weeks. HTN is well controlled. No further epsiodes or CP Orders: Orders XR chest 2V 06/02/25 J18.9 - Pneumonia, unspecified organism Medications: Discontinued cetirizine Discontinued Reason: Doctor's Order 10 mg PO DAILY 90 tabs 3RF
--- OUTSIDE RECORDS SUMMARY | 2025-06-02 15:11 | XMS_ITS | Encounter Summary ---
Author Organization [facility] Address [address] [facility] [address] [address] [place] [phone] Phone Care Team Providers Care Packaging Materials Inspector Name Role Phone Rocco Hector MD Unavailable Fermín Head DO Primary Care Provider Encounter Details Date Type Department Care Team (Late st Contact Info) Description 05/11/2020 Procedure Pass [facility] PERIOPERATIVE DEPT [address] [place] [id number] Social History Tobacco Use Types Packs/Day Years Used Date Smoking Tobacco: Never Smokeless Tobacco: Never Alcohol Use Standard Drinks/Week Comments Yes 4 (1 standard drink = 0.6 oz pur e alcohol) Sex and Gender Information Value Date Recorded Sex Assigned at Male 03/04/2020 2:43 PM EDT Legal Sex Male 11:23 AM EDT Gender Identity Male 03/04/2020 2:43 PM EDT Sexual Orientation Straight 03/04/2020 2: 43 PM EDT documented as of this encounter Plan of Treatment Upcoming Encounters Date Type Department Care Team (Late Contact Info) Description 06/28/2025 8:45 AM EDT Telemedicine - audio only [facility] Thoracic Surgery [address] [place] [address], [address] [place] [address] De Griffith MD [address] [place] [address] [address] [place] [address] [email or web address] documented as of this encounter Visit Diagnoses Not on filedocumented in this encounter Care Teams Packaging Materials Inspector Relationship Specialty Start Date End Date Fermín Head DO [address] [place] [id number] PCP - General Internal Medicine 05/09/20 Rocco Hector MD [address] [place] [id number] Gastroenterology 06/16/19 documented as of this encounter Additional Source Comments The information contained in this document represents components of the legal health record. It is not the complete legal health record.[facility]
--- OUTSIDE RECORDS SUMMARY | 2025-06-02 15:11 | XMS_ITS | Clinical Summary ---
Author Organization [facility] Address [address] [facility] [address] [place] [address] Phone Care Team Providers Care Layboy Tender Name Role Phone Rocco Hector MD Unavailable [phone] Fermín Head DO Primary Care Provider Allergies No known active allergies Medications acetaminophen (TYLENOL) 325 mg tablet Take 2 tablets (650 mg total) by mouth every 6 (six) hours. 0 05/12/2020 Active ibuprofen (ADVIL,MOTRIN) 100 mg/5 mL suspension Take 20-30 mL (400-600 mg total) by mouth every 6 (six) hours as needed for mild pain. 05/12/2020 Active omeprazole (PRILOSEC) 20 MG capsule TAKE 1 CAPSULE BY MOUTH EVERY DAY 90 capsule 3 02/01/2025 Active Active Problems Problem Noted Date Diagnosed Date Achalasia 05/11/2020 Social History Tobacco Use Types Packs/Day Years Used Date Smoking Tobacco: Never Smokeless Tobacco: Never Alcohol Use Standard Drinks/Week Comments Yes 4 (1 standard drink = 0.6 oz pur e alcohol) Education Answer Date Recorded Are you interested in more education? Not on jose e 01/30/2023 Are you concerned about learning? Not on file 01/30/2023 No 01/30/2023 No 01/30/2023 Digital Access Answer Date Recorded No 02/28/2023 No 02/28/2023 No 02/28/2023 Reliable internet access at home? Not on file 02/28/2023 Device with a working camera? Not on file Sex and Gender Information Value Date Recorded Sex Assigned at Male 03/04/2020 2:43 PM EDT Legal Sex Male 11:23 AM EDT Gender Identity Male 03/04/2020 2:43 PM EDT Sexual Orientation Straight 03/04/2020 2: 43 PM EDT Last Filed Vital Signs Vital Sign Reading Time Taken Comments Blood Pressure 128/89 05/12/2020 7:00 AM EDT Pulse 53 05/12/2020 7:00 AM EDT Temperature 36.6 C (97.8 F) 05/12/2020 7:00 AM EDT Respiratory Rate 18 05/12/2020 7:00 AM EDT Oxygen Saturation 99% 05/12/2020 7:00 AM EDT Inhaled Oxygen Concentration - - Weight 126.1 kg (278 lb) 05/11/2020 4:52 PM EDT Height 193 cm (6' 4 ) 05/11/2020 4:52 PM EDT Body Mass Index 33.84 05/11/2020 4:52 PM EDT Plan of Treatment Upcoming Encounters Date Type Department Care Team (Late st Contact Info) Description 06/28/2025 8:45 AM EDT Telemedicine - audio only [facility] Thoracic Surgery [address] [place] [address], 7th [place] [address] De Griffith MD [address] [place] [id number] [email or web address] Health Maintenance Due Date Last Done Comments LIPID PANEL 1955 DEPRESSION SCREENING 1967 HEPATITIS C SCREENING 1973 COLOGUARD 2000 COLONOSCOPY 2000 COLORECTAL CANCER SCREENING 2000 FIT TEST 2000 FOBT 2000 SIGMOIDOSCOPY 2000 VIRTUAL COLONOSCOPY 2000 PNEUMOCOCCAL VACCINES (50+ years) (1 of 1 - PCV) 2005 ZOSTER VACCINES (2 of 3) 07/11/2015 05/16/2015 Adult Td,Tdap Booster 11/08/2018 11/08/2008 COVID-19 VACCINE (3 - 2023-2 5 season) 2024 01/06/2021, 12/09/2020 RSV VACCINE (1 - 1-dose 75+ series) 2030 SMOKING STATUS SCREENING (On ce After 26 Yrs) Completed 05/09/2020 HEPATITIS A VACCINES Aged Out No long er eligible based on patient's age to complete this topic HIB VACCINES Aged Out No longer eligi ble based on patient's age to complete this topic MENINGOCOCCAL VACCINES (ACWY) Aged Out No longer eligible based on patient's age to complete this topic MENINGOCOCCAL VACCINES (B) Aged Out N o longer eligible based on patient's age to complete this topic Medical Devices Not on file Insurance MEDICARE PART A & B [facility] MEDEX SUPPLEMENT MEDICARE PART A & B [employer] MEDEX SUPPLEMENT MEDICARE PART A & B [employer] MEDEX SUPPLEMENT MEDICARE PART A & B [place] MEDICARE PART A & B [place] SU[place] MEDICARE PART A & B [employer] MEDEX SUPPLEMENT MEDICARE PART A & B [employer] MEDEX SUPPLEMENT MEDICARE PART A & B [employer] MEDEX SUPPLEMENT [place], [place] MEDICARE PART A & B [employer] MEDEX SUPPLEMENT Advance Directives For more information, please contact: [phone] (9AM - 5PM Ella/[facility], Thursday-Thursday) * Full Code (Presumed) (Latest Code Status on File) Date Activated Date Inactivated Comments 05/11/2020 2:37 PM Care Teams Layboy Tender Relationship Specialty Start Date End Date Fermín Head DO [address] [place] [id number] PCP - General Internal Medicine 05/09/20 Rocco Hector MD [address] [place] [address] Gastroenterology 06/16/19 Additional Source Comments The information contained in this document represents components of the legal health record. It is not the complete legal health record.[facility]
--- OUTSIDE RECORDS SUMMARY | 2025-06-02 15:11 | XMS_ITS | Clinical Summary ---
Author Organization [facility] [address] [facility] Address [address] [place] [address] Phone Care Team Providers Care Space And Missile Operations Spacelift Name Role Phone Fany Lugo MD Primary Care Provider [phone] Encounters Date Type Department Care Team Description 03/31/2025 Telephone Gastroenterology - [address] [address] Sky Valerio MD from Last 3 Months Surgical History Surgery Date Site/Laterality Comments OTHER SURGICAL HISTORY 03/27/05 PROCEDURE: [place] ESOPHAGOSCOPY FLEX BALLOON DILAT <30 MM DIAM; COMMENT: Dr. Hector KNEE SURGERY 1986 Left PROCEDURE: HISTORICAL KNEE SURGERY; COMMENT: chondromalacia HAND SURGERY about 2002 PROCEDURE: HISTORICAL HAND SURGERY; COMMENT: trigger finger R hand- Dr. Nichole OTHER SURGICAL HISTORY 04/09/12 PROCEDURE: [place] ESOPHAGOSCOPY FLEX BALLOON DILAT <30 MM DIAM; COMMENT: Dr. Valerio FOOT SURGERY 2003 PROCEDURE: HISTORICAL FOOT SURGERY; COMMENT: right foot bunionectomy KNEE SURGERY 05/2014 Left PROCEDURE: HISTORICAL KNEE SURGERY; COMMENT: Dr. Miller meniscus repair OTHER SURGICAL HISTORY 08/05/2017 PROCEDURE: [place] ESOPHAGOSCOPY FLEX BALLOON DILAT <30 MM DIAM; COMMENT: 3.[address] Hector Medical History Medical History Date Comments Achalasia 10/10/2016 DX:Achalasia; CO MMENT: Recurrent: dilation x 3, most recent 08/05/17 Cervical arthritis 11/06/2017 DX:Cervical a rthritis Cervical disc disease 11/06/2017 DX:Cervica l disc disease Dysphagia 02/25/2012 DX:Dysphagia; CO MMENT: Dr. Valerio - 02/13 - barium swallow 04/15 - upper endoscopy - mild stenosis dilated; 07/19 - upper endoscopy - mild stenosis dilated again; biopsy unremarkable Epigastric pain 12/27/2018 DX:Epigastric pa in Esophageal reflux 01/18/2019 DX:Esophageal reflux Family history of cardiovasc ular disease 11/08/2008 DX:Family history of cardiov ascular disease Fatigue 05/18/2013 DX:Fatigue; COMM ENT: Dr. Ordaz - negative endocrine workup Hypertension 12/24/2013 DX:Hypertension Lumbar disc disease 11/08/2008 DX:Lumbar di sc disease; [facility]- pain at back of left knee radiating from left buttock- Dr. Bates notes negative ultrasound of the leg, lumbar MRI, negative CT scan of abdomen and pelvis; unable to obtain myelogram; repeat lumbar epidural steroid injections Obesity (BMI 30-39.9) 11/08/2008 DX:Obesity (BMI 30-39.9) Sensorineural hearing loss, bilateral 07/02/2011 DX:Sensorineural hearing loss, bilateral; COMMENT: Dr. Saleh- hearing aids suggested 2010 - has Low Tone hearing aids Syncope and collapse 02/12/2007 DX:Syncope and collapse; COMMENT: Dr. Canseco Family History Medical History Relation Name Comments Mental illness Brother 1 Heart attack Father age 48 Relation Name Status Comments Brother 1 Brother 2 (Age 54) [place] Father (Age 48) [place] Mother Social History Tobacco Use Types Packs/Day Years Used Date Smoking Tobacco: Never Smokeless Tobacco: Never Alcohol Use Standard Drinks/Week Comments Yes 2.5 (1 standard drink = 0.6 oz p ure alcohol) Sex and Gender Information Value Date Recorded Sex Assigned at Male 03/31/2025 4:07 PM EDT Legal Sex Male 1:22 AM EST Gender Identity Male 03/31/2025 4:07 PM EDT Sexual Orientation Not on file Obstetrics History Last Filed Vital Signs Vital Sign Reading Time Taken Comments Blood Pressure - - Pulse - - Temperature - - Respiratory Rate - - Oxygen Saturation - - Inhaled Oxygen Concentration - - Weight 120 kg (265 lb) 10/02/2022 3:04 PM EST Height 193 cm (6' 4 ) 10/02/2022 3:04 PM EST Body Mass Index 32.26 10/02/2022 3:04 PM EST Plan of Treatment Health Maintenance Due Date Last Done Comments Pneumococcal Vaccine: 50+ Years (1 of 1 - PCV) 2005 Zoster Vaccines (2 of 3) 07/11/2015 05/16/2015 DTaP,Tdap,and Td Vaccines (2 - Td or Tdap) 11/08/2018 11/08/2008 Abdominal Aortic Aneurysm (AAA) Screen 09/07/2022 Cholesterol Screening (Lipid Panel) 09/07/2022 Colorectal Cancer Screening: Colonoscopy 09/07/2022 Falls Risk Assessment 09/07/2022 Hepatitis C Screening 09/07/2022 Medicare Annual Wellness Visit 09/07/2022 Social Influencers of Health Screening 09/07/2022 Hypertension/CHF/CAD Annual BMP Blood Test 09/19/2022 COVID-19 Vaccine ( season) 2024 07/27/2021, 01/06/2021, 12/09/2020 Depression Screening 10/05/2024 Influenza Vaccine (#1) 2025 , 07/04/2020, 07/09/2019, Additional history exists RSV Immunization Adult Patients (1 - 1-dose 75+ series) 2030 HIB Vaccines Aged Out No longer eligi ble based on patient's age to complete this topic HPV Vaccines Aged Out No longer eligi ble based on patient's age to complete this topic Hepatitis A Vaccines Aged Out No long er eligible based on patient's age to complete this topic Hepatitis B Vaccines Aged Out No long er eligible based on patient's age to complete this topic IPV Vaccines Aged Out No longer eligi ble based on patient's age to complete this topic MMR Vaccines Aged Out No longer eligi ble based on patient's age to complete this topic Meningococcal ACWY Vaccine Aged Out N o longer eligible based on patient's age to complete this topic Meningococcal B Vaccine Aged Out No l onger eligible based on patient's age to complete this topic RSV Immunization Patients Under 20 months Aged Out No longer eligible based on patient's age to complete this topic Varicella Vaccines Aged Out No longer eligible based on patient's age to complete this topic Insurance MEDICARE BLUE CROSS - [place] MEDICARE ADVANTAGE Care Teams Space And Missile Operations Spacelift Relationship Specialty Start Date End Date Fany Lugo MD PCP - General 10/02/22
--- OUTSIDE RECORDS SUMMARY | 2025-06-02 15:12 | XMS_ITS | Clinical Summary ---
Author Organization [facility] Address [address] [place] [address] Care Team Providers Care Cena Name Role Phone Millicent Melara MD Primary Care Provider [phone] Social History Tobacco Use Types Packs/Day Years [...] of 1 - PCV) 2020 Influenza Vaccine (#1) 2025 8, 06/18/2017, 08/17/2015, Additional history exists RSV Adult > 60+ Yrs or (1 - 1-dose 75+ series) 2030 Hepatitis B Vaccines Aged Out No long er eligible based on patient's age to complete this topic RSV Ped < 20 months Aged Out No longe r eligible based on patient's age to complete this topic Care Teams Cena Relationship Specialty Start Date End Date Millicent Melara MD [address] [place] [address] PCP - General Family Medicine 10/19/20
[2025-06-02 15:13] VITALS: BP 112/84; PULSE 80; RESP 14; TEMP 36.9; O2SAT 95; BMI 32.2
== END 2025-06-02 16:42 | disposition home or self-care (01) ==
LOC: HO.HMCFM 15:08
PROVIDERS: PCP Internal Medicine; Visit Provider Internal Medicine
DX: J18.9 Pneumonia, unspecified organism (principal); I10 Essential (primary) hypertension; E78.2 Mixed hyperlipidemia

== ENCOUNTER → 2025-06-02 15:07 | Outpatient (BNVA) | payer MEDICARE, SELFPAY | PROVIDERS: PCP Internal Medicine; Visit Provider Internal Medicine | DX: J18.9 Pneumonia, unspecified organism (principal); I10 Essential (primary) hypertension; E78.2 Mixed hyperlipidemia; K21.9 Gastro-esophageal reflux disease without esophagitis; M48.00 Spinal stenosis, site unspecified; Z79.899 Other long term (current) drug therapy | CPT/HCPCS: 99212 ==

== ENCOUNTER 2025-06-08 07:52 | Outpatient (REF) | payer MEDICARE, SELFPAY ==
--- NOTE | 2025-06-08 07:55 | PFT_ITS ---
Flows: FEV1: 96 % of predicted at 3.50 L FVC: 98 % of predicted at 4.75 L FEV1/FVC: 74 % Bronchodilator response: Absent Volumes: Total lung capacity: 84 % of predicted at 6.81 L Residual volume: 57 % of predicted at 1.65 L Slow vital capacity: 99 % of predicted at 5.16 L Expiratory reserve volume: 35 % of predicted at 0.53 L Diffusion capacity: Mildly decreased Impression: No obstructive or restrictive ventilatory defects. No bronchodilator response. Decreased expiratory reserve volume suggests extrathoracic restriction likely secondary to abdominal obesity. Isolated defect in diffusion capacity suggests pulmonary edema. Clinical correlation is advised. MTDD
--- OUTSIDE RECORDS SUMMARY | 2025-06-08 07:57 | XMS_ITS | Clinical Summary ---
Author Organization [facility] Address [address] [facility] [address] [place] [address] Phone Care Team Providers Care Mask Inspector Name Role Phone Rocco Hector MD Unavailable [phone] Fermín Head DO Primary Care Provider Allergies [...] 8:45 AM EDT Telemedicine - audio only [facility] Thoracic Surgery [address] [place] [address], 7th [place] [address] De Griffith MD [address] [place] [id number] [email or web address] DU Health Maintenance Due Date Last Done Comments LIPID PANEL 1955 DEPRESSION SCREENING 1967 HEPATITIS C SCREENING 1973 COLOGUARD 2000 COLONOSCOPY 2000 COLORECTAL CANCER SCREENING 2000 FIT TEST 2000 FOBT 2000 SIGMOIDOSCOPY 2000 VIRTUAL COLONOSCOPY 2000 PNEUMOCOCCAL VACCINES (50+ years) (1 of 1 - PCV) 2005 ZOSTER VACCINES (2 of 3) 07/11/2015 05/16/2015 Adult Td,Tdap Booster 11/08/2018 11/08/2008 INFLUENZA VACCINE (#1) 2025 0, 07/09/2019, 07/22/2018, Additional history exists COVID-19 VACCINE ( - 2024- season) 2025 01/06/2021, 12/09/2020 RSV VACCINE (1 - 1-dose 75+ series) 2030 SMOKING STATUS SCREENING (Once After 26 Yrs) Completed 05/09/2020 HEPATITIS A [...] file Insurance [place] [id number] [place] [employer] MEDEX [facility]PPLEMENT [facility] Address: [facility] [address] [place] [address] MEDICARE PART A & B [place] MEDEX SUPPLEMENT MEDICARE PART A & B [employer] MEDEX SUPPLEMENT MEDICARE PART A & B [place] SUPPLEMENT MEDICARE PART A & B [place] SUPPLEMENT MEDICARE PART A & B [place] MED[employer] SUPPLEMENT MEDICARE PART A & B [place] [employer] MED[employer] SUPPLEMENT MEDICARE PART A & B MED[place] SUPPLEMENT MEDICARE PART A & B [facility] MEDEX SUPPLEMENT Advance Directives For more information, please contact: [phone] (9AM - 5PM Ella/[facility], Thursday-Thursday) * Full Code (Presumed) (Latest Code Status on File) Date Activated Date Inactivated Comments 05/11/2020 2:37 PM Care Teams Mask Inspector Relationship Specialty Start Date End Date Fermín Head DO [address] [place] [id number] PCP - General Internal Medicine 05/09/20 Rocco Hector MD [address] [place] [address] Gastroenterology 06/16/19 Additional Source Comments The information contained in this document represents components of the legal health record. It is not the complete legal health record.[facility]
--- OUTSIDE RECORDS SUMMARY | 2025-06-08 07:57 | XMS_ITS | Encounter Summary ---
Author Organization [facility] Address [address] [facility] [address] [place] [address] Phone Care Team Providers Care Sterilizer Machine Operator Name Role Phone Rocco Hector MD Unavailable [phone] Fermín Head DO Primary Care Provider Encounter Details Date Type Department Care Team (Late st Contact Info) Description 05/11/2020 Procedure Pass [facility] PERIOPERATIVE DEPT [address] [place] [id number] Social History Tobacco Use Types Packs/Day Years [...] 8:45 AM EDT Telemedicine - audio only [facility] Thoracic Surgery [address] [place] [address], 7th [place] [address] De Griffith MD [address] [place] [address] [address] [place] [address] [email or web address] documented as of this encounter Visit Diagnoses Not on filedocumented in this encounter Care Teams Sterilizer Machine Operator Relationship Specialty Start Date End Date Fermín Head DO [address] [place] [address] PCP - General Internal Medicine 05/09/20 Rocco Hector MD [address] [place] [address] Gastroenterology 06/16/19 documented as of this encounter Additional Source Comments The information contained in this document represents components of the legal health record. It is not the complete legal health record.[facility]
--- OUTSIDE RECORDS SUMMARY | 2025-06-08 07:57 | XMS_ITS | Clinical Summary ---
Author Organization [facility] [address] [facility] Address [address] [place] [address] Phone Care Team Providers Care Wearing Apparel Shaker Name Role Phone Fany Lugo MD Primary Care Provider [phone] Encounters Date Type Department Care Team Description 03/31/2025 Telephone Gastroenterology - [address] [address] Sky Valerio MD from Last 3 Months Surgical History Surgery Date Site/Laterality Comments OTHER SURGICAL HISTORY 03/27/05 PROCEDURE: [place] ESOP[place] FLEX BALLOON DILAT <30 MM DIAM; COMMENT: Dr. Hector KNEE SURGERY 1986 Left PROCEDURE: HISTORICAL KNEE SURGERY; COMMENT: chondromalacia HAND SURGERY about 2002 PROCEDURE: HISTORICAL HAND SURGERY; COMMENT: trigger finger R hand- Dr. Nichole OTHER SURGICAL HISTORY 04/09/12 PROCEDURE: [place] ESOPHAGOSCOPY FLEX BALLOON DILAT <30 MM DIAM; COMMENT: Dr. Valeroi FOOT SURGERY 2003 PROCEDURE: HISTORICAL FOOT SURGERY; COMMENT: right foot bunionectomy KNEE SURGERY 05/2014 Left PROCEDURE: HISTORICAL KNEE SURGERY; COMMENT: Dr. Miller meniscus repair OTHER SURGICAL HISTORY 08/05/2017 PROCEDURE: [place] ESOPH[place]OS[place] FLEX BALLOON DILAT <30 MM DIAM; [...] DX:Lumbar di sc disease; [facility]- pain at back of left knee [...] Comments Brother 1 Brother 2 (Age 54) [place] Father (Age 48) [place] Mother Social History Tobacco Use Types Packs/Day [...] 09/07/2022 Hypertension/CHF/CAD Annual BMP Blood Test 09/19/2022 Depression Screening 10/05/2024 COVID-19 Vaccine ( season) 2025 07/27/2021, 01/06/2021, 12/09/2020 Influenza Vaccine (#1) 2025 , 07/04/2020, 07/09/2019, [...] [place]OSS - [place] MEDICARE ADV[place] Care Teams Wearing Apparel Shaker Relationship Specialty Start Date End Date Fany Lugo MD PCP - General 10/02/22
--- OUTSIDE RECORDS SUMMARY | 2025-06-08 07:57 | XMS_ITS | Clinical Summary ---
Author Organization [facility] Address [address] [place] [address] Care Team Providers Care Cupola Melting Supervisor Name Role Phone Millicent Melara MD Primary Care Provider [phone] Social History Tobacco Use Types Packs/Day Years [...] age to complete this topic Care Teams Cupola Melting Supervisor Relationship Specialty Start Date End Date Millicent Melara MD [address] [place] [address] PCP - General Family Medicine 10/19/20
[2025-06-08 08:44] VITALS: PULSE 62; O2SAT 96
== END 2025-06-08 07:53 | disposition home or self-care (01) ==
LOC: HO.RESP 07:52
PROVIDERS: PCP Internal Medicine; Visit Provider Internal Medicine
DX: R09.82 Postnasal drip (principal); Z87.09 Personal history of other diseases of the respiratory system
CPT/HCPCS: 94010; 94640; 94727; 94729

== ENCOUNTER → 2025-06-08 07:55 | Outpatient (BNV) | payer MEDICARE, SELFPAY | PROVIDERS: PCP Internal Medicine; Visit Provider Internal Medicine Pulmonary Disease | DX: Z87.09 Personal history of other diseases of the respiratory system (principal) | CPT/HCPCS: 94060; 94727; 94729 ==

== ENCOUNTER 2025-09-19 07:32 | Outpatient (REF) | payer MEDICARE, SELFPAY ==
--- OUTSIDE RECORDS SUMMARY | 2025-09-19 07:36 | XMS_ITS | Clinical Summary ---
Author Organization [facility] Prior to 03/04/25 Address [address] [place] [address] Care Team Providers Care Advertising Editor Name Role Phone Millicent Melara MD Primary Care Provider [phone] Social History Tobacco Use Types Packs/Day Years [...] age to complete this topic Care Teams Advertising Editor Relationship Specialty Start Date End Date Millicent Melara MD [address] [place] [address] PCP - General Family Medicine 10/19/20
--- OUTSIDE RECORDS SUMMARY | 2025-09-19 07:36 | XMS_ITS | Encounter Summary ---
Author Organization [facility] Address [address] [place] [address] Care Team Providers Care Electric Motorman Name Role Phone Fany Lugo MD Primary Care Provider [phone] Encounter Details Date Type Department Care Team ([facility] st Contact Info) Description 09/06/2025 Results Follow-Up Gastroenterology - [address] [facility] [address] [place] [address] Johanna De Los Santos [place] Social History Tobacco Use Types Packs/Day Years Used Date Smoking Tobacco: Never Smokeless Tobacco: Never Alcohol Use Standard Drinks/Week Comments Yes 4 (1 standard drink = 0.6 oz pur e alcohol) Interpersonal Safety Answer Date Record ed Physical Abuse Unrecognized value 09/04/2025 Verbal Abuse Unrecognized value 09/04/2025 Sex and Gender Information Value Date Recorded Sex Assigned at Male 03/31/2025 4:07 PM EDT Legal Sex Male 1:22 AM EST Gender Identity Male 03/31/2025 4:07 PM EDT Sexual Orientation Not on file documented as of this encounter Plan of Treatment Not on file documented as of this encounter Goals Goal Patient Goal Type Associated Problems Recent Progress Patient-Stated? Author Autogenera suzy Goal Care Plan Autogenerated Problem No Rachna Davis documented as of this encounter Visit Diagnoses Not on filedocumented in this encounter Additional Health Concerns Active Problems Noted Date Diagnosed Date Autogenerated Problem 08/06/2025 documented as of this encounter Care Teams Electric Motorman Relationship Specialty Start Date End Date Fany Lugo MD [address] [place] [address] PCP - General Internal Medicine 08/27/25 documented as of this encounter
--- OUTSIDE RECORDS SUMMARY | 2025-09-19 07:36 | XMS_ITS | Clinical Summary ---
Author Organization [facility] [address] [facility] Address [address] [place] [address] Phone Care Team Providers Care Automated Cutting Machine Operator Name Role Phone Fany Lugo MD Primary Care Provider [phone] Allergies No known active allergies Medications omeprazole (PriLOSEC) [address] capsule Take 1 capsule (20 mg total) by mouth daily. 5 Active amLODIPine (NORVASC) 10 mg tablet Take 1 tablet (10 mg total) by mouth 1 (one) time each day. Active atorvastatin (LIPITOR) 10 mg tablet Take 1 tablet (10 mg total) by mouth at bedtime. Active traMADoL (ULTRAM) 50 mg tablet Take 1 tablet (50 mg total) by mouth 2 (two) times a day. Active baclofen (LIORESAL) 10 mg tablet Take 1 tablet (10 mg total) by mouth 2 (two) times a day. Active cetirizine (ZyrTEC) 10 mg tablet Take 1 tablet (10 mg total) by mouth 1 (one) time each day. Active bisacodyL (DULCOLAX) 5 mg EC tablet Take 2 tablets by mouth right before beginning bowel prep. See instructions provided by the office 2 tablet 5 Active polyethylene glycol (Golytely) 236-22.74-6.74 -5.86 gram solution Take 4L by mouth once for one dose. May substitue any PEG. Starting at 2PM the day before your procedure drink 1 8oz glasses at your own pace until you complete half of the gallon. Finish 2nd half of the gallon at 8PM. 4000 mL Active Encounters Date Type Department Care Team Description 09/06/2025 Results Follow-Up Gastroenterology - [address] [place] [phone] Filiberto JohannaTHAO 09/04/2025 12:04 PM EST Anesthesia Event [facility] Endoscopy [address] [place] [phone] Moon Hummel MD 09/04/2025 11:23 AM EST - 09/04/2025 11:59 PM EST Hospital Encounter [facility] Endoscopy [address] [place] [phone] Sky Valerio MD Barnes, Tyanna R, CRNA Freeman, Katharine O, MD Colon cancer screening Discharge Disposition: Home or Self Care 06/21/2025 Telephone Gastroenterology - [address] [place] [phone] Gregorio Mendoza MD from Last 3 Months Surgical History Surgery Date Site/Laterality Comments OTHER SURGICAL HISTORY 03/27/05 PROCEDURE: GA ESOPHAGOSCOPY FLEX BALLOON DILAT <30 MM DIAM; COMMENT: Dr. Hector KNEE SURGERY 1986 Left PROCEDURE: HISTORICAL KNEE SURGERY; COMMENT: chondromalacia HAND SURGERY about 2002 PROCEDURE: HISTORICAL HAND SURGERY; COMMENT: trigger finger R hand- Dr. Nichole OTHER SURGICAL HISTORY 04/09/12 PROCEDURE: GA ESOPHAGOSCOPY FLEX BALLOON DILAT <30 MM DIAM; COMMENT: Dr. Valerio FOOT SURGERY 2003 PROCEDURE: HISTORICAL FOOT SURGERY; COMMENT: right foot bunionectomy KNEE SURGERY 05/2014 Left PROCEDURE: HISTORICAL KNEE SURGERY; COMMENT: Dr. Miller meniscus repair OTHER SURGICAL HISTORY 08/05/2017 PROCEDURE: GA ESOPHAGOSCOPY FLEX BALLOON DILAT <30 MM DIAM; COMMENT: 3.[address] Hector CHOLECYSTECTOMY Medical History Medical History Date Comments Achalasia [...] DX:Lumbar di sc disease; [facility] at back of left knee [...] Comments Brother 1 Brother 2 (Age 54) [place] Father (Age 48) [place] Mother Social History Tobacco Use Types Packs/Day [...] PM EDT Sexual Orientation Not on file Last Filed Vital Signs Vital Sign Reading Time Taken Comments Blood Pressure 103/68 09/04/2025 12:41 PM EST Pulse 67 09/04/2025 12:41 PM EST Temperature 36.1 C (97 F) 09/04/2025 12:21 PM EST Respiratory Rate 18 09/04/2025 12:41 PM EST Oxygen Saturation 96% 09/04/2025 12:41 PM EST Inhaled Oxygen Concentration - - Weight 118 kg (260 lb) 09/04/2025 11:29 AM EST Height 193 cm (6' 4 ) 09/04/2025 11:29 AM EST Body Mass Index 31.65 09/04/2025 11:29 AM EST Plan of Treatment Health Maintenance Due Date Last Done Comments Pneumococcal Vaccine: 50+ Years (1 of 1 - PCV) 2005 DTaP,Tdap,and Td Vaccines (2 - Td or Tdap) 11/08/2018 11/08/2008 Cholesterol Screening (Lipid Panel) 09/07/2022 Hepatitis C Screening 09/07/2022 Medicare Annual Wellness Visit 09/07/2022 Social Influencers of Health Screening 09/07/2022 Hypertension/CHF/CAD Annual BMP Blood Test 09/19/2022 Depression Screening 10/05/2024 COVID-19 Vaccine ( season) 2025 02/03/2022, 07/27/2021, 01/06/2021, Additional history exists Falls Risk Assessment 09/04/2026 09/04/2025 RSV Immunization Adult Patients (1 - 1-dose 75+ series) 2030 Colorectal Cancer Screening: Colonoscopy 09/04/2030 09/04/2025, 06/29/2025, 06/29/2025 Zoster Vaccines Completed 04/10/2023, 02/2023, 05/16/2015 Influenza Vaccine Completed 06/18/2025, , 07/10/2022, Additional history exists HIB Vaccines Aged Out No longer eligi [...] on patient's age to complete this topic Goals Goal Patient Goal Type Associated Problems Recent Progress Patient-Stated? Author Autogenera suzy Goal Care Plan Autogenerated Problem No Rachna Davis Procedures Procedure Name Priority Date/Time Associated Diagnosis Comments COLONOSCOPY Routine 09/04/2025 12:20 PM EST Colon cancer screening TISSUE EXAM Routine 09/04/2025 12:16 PM EST Colon cancer screening CT PELVIS WO CONTRAST Routine 06/29/2025 1:48 PM EDT COLONOSCOPY Routine 06/29/2025 1:19 PM EDT EXTERNAL ENDOSCOPY REPORT Routine 06/29/2025 1:18 PM EDT EXTERNAL ENDOSCOPY REPORT Routine 06/29/2025 1:17 PM EDT COLONOSCOPY Routine 06/29/2025 1:16 PM EDT from Last 3 Months Results * COLONOSCOPY Anesthesia - MAC; [facility] ENDOSCOPY (09/04/2025 12:20 PM EST) Only the most recent of3 resultswithin the time period is included. Anatomical Region Laterality Modality Other 09/04/2025 11:5 3 AM EST Impressions 09/04/2025 12:24 PM EST - One 5 mm polyp at the hepatic flexure, removed with a cold snare. Resected and retrieved. - Diverticulosis in the sigmoid colon. - Non-bleeding internal hemorrhoids. - The examination was otherwise normal on direct and retroflexion views. Recommendation: - Discharge patient to home. - High fiber diet. - Continue present medications. - Await pathology results. - Repeat colonoscopy for surveillance based on pathology results. - Return to GI office PRN. Narrative 09/04/2025 12:24 PM EST [facility] GI Patient Name: Jay Jay Oh Procedure Date: 09/04/2025 11:53 AM Date of : 1955 Age: 70 Room: ROOM 14 Gender: Male Note Status: Finalized Attending MD: Sky Valerio MD, Procedure Date No Time: 09/04/2025 Procedure: Colonoscopy Indications: Screening for colorectal malignant neoplasm Providers: Sky Valerio MD Referring MD: Sky Valerio MD Medicines: Monitored Anesthesia Care Complications: No immediate complications. Estimated Blood Loss: Estimated blood loss: none. Procedure: Pre-Anesthesia Assessment: - ASA Grade Assessment: II - A patient with mild systemic disease. - After reviewing the risks and benefits, the patient was deemed in satisfactory condition to undergo the procedure. After I obtained informed consent, the scope was passed under direct vision. Throughout the procedure, the patient's blood pressure, pulse, and oxygen saturations were monitored continuously.The Colonoscope was introduced through the anus and advanced to the cecum, identified by appendiceal orifice and ileocecal valve. The colonoscopy was performed without difficulty. The patient tolerated the procedure well. The quality of the bowel preparation was good. Findings: A 5 mm polyp was found in the hepatic flexure. The polyp was sessile. The polyp was removed with a cold snare. Resection and retrieval were complete. Estimated blood loss was minimal. Scattered small-mouthed diverticula were found in the sigmoid colon. Non-bleeding internal hemorrhoids were found during retroflexion. The hemorrhoids were medium-sized. The exam was otherwise without abnormality on direct and retroflexion views. Procedure Code(s): --- Professional --- 18128, Colonoscopy, flexible; with removal of tumor(s), polyp(s), or other lesion(s) by snare technique Diagnosis Code(s): --- Professional --- Z12.11, Encounter for screening for malignant neoplasm of colon D12.3, Benign neoplasm of transverse colon (hepatic flexure or splenic flexure) CPT copyright 2020 [employer]. All rights reserved. The codes documented in this report are preliminary and upon medication reconciliation technician review may be revised to meet current compliance requirements. Sky Valerio MD 09/04/2025 12:24:29 PM This report has been signed electronically.Sky Valerio MD Number of Addenda: 0 Note Initiated On: 09/04/2025 11:53 AM Scope In: Scope Out: Endoscopy Department at [facility] - [address] [place] [phone] Procedure Note Sky Valerio MD - 09/04/2025 [facility] GI Patient Name: Jay Jay Oh Procedure Date: 09/04/2025 11:53 AM Date of : 1955 Age: 70 Room: ROOM 14 Gender: Male Note Status: Finalized Attending MD: Sky Valerio MD, Procedure Date No Time: 09/04/2025 Procedure: Colonoscopy Indications: Screening for colorectal malignant neoplasm Providers: Sky Valerio MD Referring MD: Sky Valerio MD Medicines: Monitored Anesthesia Care Complications: No immediate complications. Estimated Blood Loss: Estimated blood loss: none. Procedure: Pre-Anesthesia Assessment: - ASA Grade Assessment: II - A patient with mild systemic disease. - After reviewing the risks and benefits, thepatient was deemed in satisfactory condition to undergo the procedure. After I obtained informed consent, the scope was passed under direct vision. Throughout theprocedure, the patient's blood pressure, pulse, and oxygen saturations were monitored continuously.The Colonoscope was introduced through the anus and advanced to the cecum, identified by appendiceal orifice and ileocecal valve. The colonoscopy was performed without difficulty. The patient tolerated the procedure well. The quality of the bowel preparation was good. Findings: A 5 mm polyp was found in the hepatic flexure. The polyp was sessile. The polyp was removed with acold snare. Resection and retrieval were complete. Estimated blood loss was minimal. Scattered small-mouthed diverticula were found inthe sigmoid colon. Non-bleeding internal hemorrhoids were found during retroflexion. The hemorrhoids were medium-sized. The exam was otherwise without abnormality ondirect and retroflexion views. Procedure Code(s): --- Professional --- 74544, Colonoscopy, flexible; with removal of tumor(s), polyp(s), or other lesion(s) by snare technique Diagnosis Code(s): --- Professional --- Z12.11, Encounter for screening for malignantneoplasm of colon D12.3, Benign neoplasm of transverse colon (hepatic flexure or splenic flexure) CPT copyright 2020 [employer]. All rights reserved. The codes documented in this report are preliminary and upon medication reconciliation technician reviewmay be revised to meet current compliance requirements. Sky Valerio MD 09/04/2025 12:24:29 PM This report has been signed electronically.Sky Valerio MD Number of Addenda: 0 Note Initiated On: 09/04/2025 11:53 AM Scope In: Scope Out: Endoscopy Department at [facility] - [address] [place] [phone] IMPRESSION: - One 5 mm polyp at the hepatic flexure, removed with a cold snare. Resected and retrieved. - Diverticulosis in the sigmoid colon. - Non-bleeding internal hemorrhoids. - The examination was otherwise normal on directand retroflexion views. Recommendation: - Discharge patient to home. - High fiber diet. - Continue present medications. - Await pathology results. - Repeat colonoscopy for surveillance based on pathology results. - Return to GI office PRN. us Sky Valerio MD GI~PROCEDURE ORDERABLES Final Result * Tissue exam (09/04/2025 12:16 PM EST) Final Diagnosis A. Large intestine, Hepatic flexure, hepatic flexure polyp x1: - Tubular adenoma. 09/05/2025 9:59 AM EST [facility] at 0958 EST Gross Description A. Large intestine, Hepatic flexure, hepatic flexure polyp x 1: Labeled hepatic flex, hepatic . Received in formalin is a 0.5 cm irregular lieberman mucosal tissue fragment which is wrapped in paper and submitted in toto in one cassette, one piece, multiple levels on one side. NEIDA 09/05/2025 9:59 AM EST [facility] Disclaimer Unless otherwise specified, all tissue is 10% NB formalin fixed and paraffin embedded. 09/05/2025 9:59 AM [facility] Tissue Structure of right colic flexure / Unknown 09/04/2025 12:16 PM EST 09/04/2025 12:43 PM EST us Sky Valerio MD LAB PATHOLOGY ORDERABLES Patricia l Result [facility] [address] [place] [address], [place] [phone] * CT Pelvis wo Contrast (06/29/2025 1:48 PM EDT) Anatomical Region Laterality Modality Body, Pelvis Computed Tomogra phy Historical Provider IMG CT PROCEDURES Final R esult * External Endoscopy (06/29/2025 1:18 PM EDT) Only the most recent of2 resultswithin the time period is included. Anatomical Region Laterality Modality Endoscopy Historical Provider GI~PROCEDURE ORDERABLES F inal Result from Last 3 Months Additional Health Concerns Active Problems Noted Date Diagnosed Date Autogenerated Problem 08/06/2025 [facility] Care Teams Automated Cutting Machine Operator Relationship Specialty Start Date End Date Fany Lugo MD [address] [place] [phone] PCP - General Internal Medicine 08/27/25
--- OUTSIDE RECORDS SUMMARY | 2025-09-19 07:36 | XMS_ITS | Encounter Summary ---
Author Organization [facility] Address [address] [place] [address] Phone Care Team Providers Care Insulation Cupola Operator Name Role Phone Rocco Hector MD Unavailable [phone] Fermín Head DO Primary Care Provider De Griffith MD, [place] Unavailable Encounter Details Date Type Department Care Team (Late st Contact Info) Description 05/11/2020 Procedure Pass [facility] PERIOPERATIVE DEPT [address] [place] [phone] Social History Tobacco Use Types Packs/Day Years [...] Care Team (Late st Contact Info) Description 07/11/2026 8:00 AM EDT Telemedicine - audio only [facility] Thoracic Surgery [address] [place] [address], [address] [place] [address] De Griffith MD, [place] [address] [place] [phone] [email or web address] documented as of this encounter Visit Diagnoses Not on filedocumented in this encounter Care Teams Insulation Cupola Operator Relationship Specialty Start Date End Date Fermín Head DO [address] [place] [address] PCP - General Internal Medicine 05/09/20 Rocco Hector MD [address] [place] [phone] Gastroenterology 06/16/19 De Griffith MD, [place] [address] [place] [id number] [email or web address] Thoracic Surgery 06/28/25 documented as of this encounter Additional Source Comments The information contained in this document represents components of the legal health record. It is not the complete legal health record.[facility]
--- OUTSIDE RECORDS SUMMARY | 2025-09-19 07:36 | XMS_ITS | Clinical Summary ---
Author Organization [facility] Address [address] [place] [address] Phone Care Team Providers Care Water Hauler Name Role Phone Rocco Hector MD Unavailable [phone] Fermín Head DO Primary Care Provider De Griffith MD, [place] Unavailable Allergies No known active allergies Medications acetaminophen [...] Problem Noted Date Diagnosed Date Achalasia 05/11/2020 Encounters Date Type Department Care Team Description 06/28/2025 8:45 AM EDT Telemedicine - audio only [facility] Thoracic Surgery [address] [place] [address], 7[address] [place] [address] De Griffith MD, [place] Achalasia (Primary Dx) from Last 3 Months Social History Tobacco Use Types Packs/Day Years [...] 8:00 AM EDT Telemedicine - audio only [facility] Thoracic Surgery [address] [place] [address], [address] [place] [address] De Griffith MD, [place] [address] [place] [phone] [email or web address] Health Maintenance Due Date Last Done [...] file Insurance MEDICARE PART A & B [employer] MEDEX SUPPLEMENT MEDICARE PART A & B [employer] MEDEX SUPPLEMENT MEDICARE PART A & B [employer] MEDEX SUPPLEMENT MEDICARE PART A & B Member Subscriber Plan / Payer ( fective 2020-) Name:Jay Jay Oh Member ID:[id number] Relation to Subscriber:Self Name:Jay Jay Oh Subscriber ID:[id number] Payer ID:[id number] Group ID:Not on file Type:Medicare Address: [facility] [phone] [employer] MEDEX SUPPLEMENT MEDICARE PART A & B [employer] MEDEX SUPPLEMENT MEDICARE PART A & B [employer] MEDEX SUPPLEMENT MEDICARE PART A & B [employer] MEDEX SUPPLEMENT MEDICARE PART A & B hyaqu [employer] MEDEX SUPPLEMENT MEDICARE PART A & B [employer] MEDEX SUPPLEMENT Advance Directives For more information, please contact: [phone] (9AM - 5PM [facility], Thursday-Thursday) * Full Code (Presumed) (Latest Code Status on File) Date Activated Date Inactivated Comments 05/11/2020 2:37 PM Care Teams Water Hauler Relationship Specialty Start Date End Date Fermín Head DO [address] [place] [phone] PCP - General Internal Medicine 05/09/20 Rocco Hector MD [address] [place] [phone] Gastroenterology 06/16/19 De Griffith MD, [place] [address] [place] [id number] [email or web address] Thoracic Surgery 06/28/25 Additional Source Comments The information contained in this document represents components of the legal health record. It is not the complete legal health record.[facility]
[2025-09-19 11:22] LABS: MANUAL DIFF FLAG NO
[2025-09-19 11:32] LABS: Hematocrit 45.6 % (42.0-52.0); Hemoglobin 15.0 g/dl (14.0-18.0); Imm Gran Abs Auto 0.03 X10*3/uL (0.00-0.03); Imm Gran Pct Auto 0.4 % (0.0-0.4); Lymphocytes Absolute Auto 1.7 X10*3/uL (1.2-4.9); Mean Corpuscular HGB Conc 32.9 g/dl (31.0-36.0); Mean Corpuscular Hemoglobin 28.5 pg (27.0-33.0); Mean Corpuscular Volume 86.5 fL (80.0-98.0); NRBC Abs Auto 0.000 X10*3/uL (0.0-0.012); NRBC Pct Auto 0.0 /100WBC (0.0-0.2); Platelet Count 323 X10*3/uL (160-400); Red Blood Count 5.27 X10*6/uL (4.60-5.80); White Blood Count 8.1 X10*3/uL (4.8-10.8)
[2025-09-19 12:01] LABS: Alanine Aminotransferase 16 U/L (0-40); Albumin Level 4.3 g/dL (3.5-5.0); Alkaline Phosphatase 81 U/L (39-117); Anion Gap 11 (12-20); Aspartate Amino Transferase 19 U/L (5-37); Blood Urea Nitrogen 16 mg/dL (9-16); Calcium 9.0 mg/dL (8.4-10.2); Carbon Dioxide 26 mmol/L (22-29); Chloride 109 mmol/L (96-108); Cholesterol 150 mg/dL (<200); Estimated Glomerular Filt Rate > 60; HDL Cholesterol 45 mg/dL (>40); Potassium 4.1 mmol/L (3.3-5.1); Sodium 142 mmol/L (135-145); Total Protein 6.6 g/dL (6.5-8.0); Triglycerides 87 mg/dL (<150)
[2025-09-19 12:09] LABS: Prostate Specific Antigen 1.45 ng/mL (<0.05-4.0)
== END 2025-09-19 07:33 | disposition home or self-care (01) ==
LOC: HO.WFDLDS 07:32
PROVIDERS: Visit Provider Internal Medicine
DX: Z12.5 Encounter for screening for malignant neoplasm of prostate (principal); Z13.0 Encounter for screening for diseases of the blood and blood-forming organs and certain disorders involving the immune mechanism; Z13.228 Encounter for screening for other metabolic disorders; Z13.1 Encounter for screening for diabetes mellitus; I10 Essential (primary) hypertension; E78.2 Mixed hyperlipidemia
CPT/HCPCS: 36415; 80053; 80061; 83036; 84153; 85025